=== PATIENT | female | born 1955 | race Caucasian/White ===

== ENCOUNTER → 2016-09-23 | Outpatient (CLI) | payer OTHER ==
[~2016-09-23] MED LIST: LACT1CAP6 PO; LORA-741 PO; OMEP40CA41 PO; SUMA50TA17 PO
--- NOTE | 2016-09-23 15:01 | DIAGNOSTIC IMAGING REPORT ---
LEFT WRIST 4 VIEWS HISTORY: Left WRIST PAIN COMPARISON: None. FINDINGS: There is no fracture or dislocation. Soft tissues are unremarkable. No radiopaque foreign bodies. Bones are slightly osteopenic. IMPRESSION: No fractures. The bones are slightly osteopenic. Electronically signed by: Trevor Block M.D. 09/23/2016 3:00 PM Dictated Date/Time: 09/23/2016 2:59 PM
== END | disposition home or self-care (01) ==
LOC: C.RADPV 14:33
PROVIDERS: ATTEND Family Medicine
DX: M25.532 Pain in left wrist (principal); M85.832 Other specified disorders of bone density and structure, left forearm

== ENCOUNTER → 2016-11-08 | Outpatient (CLI) | payer OTHER ==
--- NOTE | 2016-11-08 15:44 | DIAGNOSTIC IMAGING REPORT ---
RIGHT HAND MIN 3 VIEWS ROUTINE CLINICAL HISTORY: HAND/WRIST/FOREARM PAIN Right pain COMPARISON: None. DISCUSSION: Moderate degenerative change throughout the wrist and hand. No evidence for acute bony pathology. Alignment is anatomic. There is no evidence for fracture or dislocation. There is no evidence for soft tissue swelling. IMPRESSION: No acute process. Moderate degenerative change. The above report was generated using voice recognition software. It may contain grammatical, syntax or spelling errors. Electronically signed by: Guille Alvarez M.D. 11/08/2016 3:43 PM Dictated Date/Time: 11/08/2016 3:42 PM
--- NOTE | 2016-11-08 15:54 | DIAGNOSTIC IMAGING REPORT ---
RIGHT WRIST W/NAVICULAR MIN 3 VIEWS CLINICAL HISTORY: HAND/WRIST/FOREARM PAIN Right pain COMPARISON: None. DISCUSSION: Mild/moderate degenerative change. No well-defined acute bony abnormality. No evidence for fracture or dislocation. There is no evidence for soft tissue swelling. IMPRESSION: Mild degenerative change. No acute bony pathology. The above report was generated using voice recognition software. It may contain grammatical, syntax or spelling errors. Electronically signed by: Guille Alvarez M.D. 11/08/2016 3:53 PM Dictated Date/Time: 11/08/2016 3:52 PM
--- NOTE | 2016-11-08 15:56 | DIAGNOSTIC IMAGING REPORT ---
RIGHT FOREARM 2 VIEWS ROUTINE CLINICAL HISTORY: Right forearm pain following injury. COMPARISON: None FINDINGS: No acute fracture of the right radius or ulna is identified. Alignment of the right wrist and elbow is anatomic. There is no right elbow joint effusion. IMPRESSION: No acute fracture of the right radius or ulna. Electronically signed by: Anton Saha M.D. 11/08/2016 3:54 PM Dictated Date/Time: 11/08/2016 3:53 PM
== END | disposition home or self-care (01) ==
LOC: C.RAD1850 15:19
PROVIDERS: ATTEND Nurse Practitioner Family
DX: M79.641 Pain in right hand (principal); M79.631 Pain in right forearm

== ENCOUNTER → 2016-11-10 | Outpatient (CLI) | payer OTHER ==
--- NOTE | 2016-11-10 13:18 | DIAGNOSTIC IMAGING REPORT ---
RIGHT UPPER EXTREMITY WITHOUT HISTORY: 61 years Female with acute right wrist pain with concern for occult scaphoid fracture. COMPARISON: Right wrist radiographs 11/08/2016 TECHNIQUE: Multiple axial CT images of the right wrist were obtained without IV contrast. Coronal and sagittal reformatted images were obtained from the axial data set and submitted for review. A dose lowering technique was used consistent with the principles of ALARA FINDINGS: Exam is mildly limited secondary to patient motion. The bones are mildly demineralized. No acute fracture or dislocation is identified, specifically the scaphoid appears intact. There is no evidence of avascular necrosis or collapse. Radiocarpal and intercarpal alignment is satisfactory. No scapholunate widening is identified. The distal radius and ulna also appear intact. There is mild radiocarpal joint space narrowing with moderate degenerative changes of the first digit carpometacarpal joint. 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 The imaged flexor and extensor tendons appear to be within normal limits. There is mild subcutaneous edema about the wrist without large collection or foreign body identified. IMPRESSION: 1. No acute fracture or dislocation identified within the right carpus or distal radius, specifically the scaphoid appears intact. No evidence of avascular necrosis. 2. Degenerative changes about the wrist as above including mild radiocarpal and moderate first digit carpometacarpal osteoarthritis. 3. Mild soft tissue swelling about the wrist. The above report was generated using voice recognition software. It may contain grammatical, syntax or spelling errors. Electronically signed by: Michele Bone M.D. 11/10/2016 1:17 PM Dictated Date/Time: 11/10/2016 12:51 PM
== END | disposition home or self-care (01) ==
LOC: C.CTS 12:21
PROVIDERS: ATTEND Nurse Practitioner Family
DX: M25.531 Pain in right wrist (principal)

== ENCOUNTER → 2017-02-07 | Outpatient (CLI) | payer OTHER ==
--- NOTE | 2017-02-09 07:45 | MAMMOGRAPHY REPORT ---
BILATERAL DIGITAL SCREENING MAMMOGRAM TOMOSYNTHESIS WITH CAD: 02/07/2017 CLINICAL HISTORY: Routine screening. Patient has no complaints. TECHNIQUE: Breast tomosynthesis in addition to standard 2D mammography was performed. Current study was also evaluated with a Computer Aided Detection (CAD) system. COMPARISON: Comparison is made to exams dated: 09/28/2011 mammogram, 09/13/2005 mammogram, and 04/11/20 01 mammogram - [facility]. BREAST COMPOSITION: There are scattered areas of fibroglandular density in both breasts. FINDINGS: There are a few benign round and punctate microcalcifications in the breasts. No suspiciou s mass, architectural distortion or cluster of microcalcifications is seen. IMPRESSION: ACR BI-RADS CATEGORY 1: NEGATIVE There is no mammographic evidence of malignancy. A 1 year screening mammogram is recommended. The pa tient will receive written notification of the results. Approximately 10% of breast cancers are not detected with mammography. A negative mammographic report should not delay biopsy if a clinically suggestive mass is present. Prisclila Aly M.D. ay/:02/07/2017 15:31:26 Belt Lacer: Lissa RANDOLPH(Raghu)(Ayo), [facility] letter sent: Normal 1/2 BI-RADS Code: ACR BI-RADS Category 1: Negative
== END | disposition home or self-care (01) ==
LOC: C.MAMM 09:00
PROVIDERS: ATTEND Family Medicine
DX: Z12.31 Encounter for screening mammogram for malignant neoplasm of breast (principal)

== ENCOUNTER → 2017-04-10 | Outpatient (CLI) | payer OTHER ==
[~2017-04-10] MED LIST changes: +ESCI10TA17 PO; -LACT1CAP6 PO; -LORA-741 PO; +OMEP20TA PO; -OMEP40CA41 PO
[2017-04-10 13:13] LABS: BLOOD UREA NITROGEN 13 mg/dl (7-18); BUN/CREATININE RATIO 16.2 (10-20); CARBON DIOXIDE 26 mmol/L (21-32); CHLORIDE 108 mmol/L (98-107); CREATININE 0.79 mg/dl (0.60-1.20); GLUCOSE 98 mg/dl (70-99); POTASSIUM 3.9 mmol/L (3.5-5.1); SODIUM 138 mmol/L (136-145)
[2017-04-10 13:24] LABS: CHOLESTEROL 266 mg/dl (0-200); HDL CHOLESTEROL 44 mg/dl; LDL CHOLESTEROL CALCULATED 194 mg/dl; TRIGLYCERIDES 141 mg/dl (0-150); VERY LOW DENSITY LIPOPROT CALC 28 mg/dl
== END | disposition home or self-care (01) ==
LOC: C.LABPVFM 09:53
PROVIDERS: ATTEND Family Medicine
DX: Z13.1 Encounter for screening for diabetes mellitus (principal); F41.9 Anxiety disorder, unspecified; E78.5 Hyperlipidemia, unspecified

== ENCOUNTER → 2017-04-12 | Day surgery (SDC) | payer OTHER ==
[2017-04-03 10:35] VITALS: Ht 167.6 cm; Wt 78.6 kg
[~2017-04-12] VITALS: Ht 167.6 cm; Wt 78.6 kg
[~2017-04-12] MED LIST changes: +LIDOCAINE HCL 2% 2 ML VIAL (20MG/ML) ONE; +PROPOFOL IV EMULSION 10 MG/ML 20 ML VIAL IV ONE; +SODIUM CHLORIDE 0.9% 500ML 500 ML IV ONE
--- NOTE | 2017-04-12 12:56 | Endo History and Physical ---
History & Physical Date of Service: Apr 12, 2017. Chief Complaint: screening ,history of polyps Referring Physician: Dr. Dozier History of Present Illness 61 yo CF who presents for colonoscopy secondary to history of colon polyps. Past Surgical History Hx Cardiac Surgery: No Hx Internal Defibrillator: No Hx Pacemaker: No Hx Abdominal Surgery: Yes (RT OOPHORECTOMY, DELICIA SUKHWINDER, APPY AND RT OOPHORECTOMY) Hx of Implantable Prosthesis: No Hx Post-Op Nausea and Vomiting: No Hx Cancer Surgery: No Hx Thoracic Surgery: No Hx Orthopedic: Yes (4-5 5-6 ECDF) Hx Urinary Tract Surgery: No Family History IBD Social History Smoking Status: Current Every Day Smoker Hx Substance Use: No Hx Alcohol Use: No Allergies Coded Allergies: Dicyclomine (Verified Allergy, Unknown, irregular heartbeat, 04/03/17) Sulfa Drugs (Verified Allergy, Unknown, GI UPSET, 04/03/17) Aspirin (Verified Adverse Reaction, Mild, GI UPSET, 04/03/17) Clavulanic Acid (Verified Adverse Reaction, Mild, GI UPSET, 04/03/17) Erythromycin (Verified Adverse Reaction, Mild, GI UPSET, 04/03/17) Hydrocodone (Verified Adverse Reaction, Unknown, VOMITING AND "WAS TOTALLY OUT OF IT", 04/03/17) Current Medications Reported Home Medications Medications Dose Route/Sig Max Daily Dose Days Date Category Lexapro (Escitalopram Oxalate) 10 Mg Tab 10 Mg PO QAM 04/03/17 Reported Omeprazole 20 Mg Tab 1 Tab PO BID PRN 04/03/17 Reported Sumatriptan Succinate 50 Mg Tab 50 Mg PO UD 07/31/13 Reported Vital Signs Weight (Kilograms): 78.64 Height (Feet): 5 Height (Inches): 6 Physical Exam General Appearance: WD/WN, no apparent distress Respiratory/Chest: Auscultation: breath sounds normal Cardiovascular: Heart Auscultation: RRR Abdomen: Bowel Sounds: normal Inspection & Palpation: soft, non-distended, no tenderness, guarding & rebound Assessment and Plan Assessment: 61 yo CF who presents for colonoscopy secondary to history of colon polyps. Plan: Proceed with colonoscopy
[2017-04-12 13:00] VITALS: TEMP 37.1
--- NOTE | 2017-04-12 13:34 | Discharge Instructions ---
Endoscopy Patient Instructions Date / Procedure(s) Performed Apr 12, 2017. Colonoscopy Allergy Information Coded Allergies: Dicyclomine (Verified Allergy, Unknown, irregular heartbeat, 04/03/17) Sulfa Drugs (Verified Allergy, Unknown, GI UPSET, 04/03/17) Aspirin (Verified Adverse Reaction, Mild, GI UPSET, 04/03/17) Clavulanic Acid (Verified Adverse Reaction, Mild, GI UPSET, 04/03/17) Erythromycin (Verified Adverse Reaction, Mild, GI UPSET, 04/03/17) Hydrocodone (Verified Adverse Reaction, Unknown, VOMITING AND "WAS TOTALLY OUT OF IT", 04/03/17) Discharge Date / Findings Apr 12, 2017. Colon polyp Internal hemorrhoids Medication Instructions OK to resume all medications today as prescribed Reported Home Medications Medications Dose Route/Sig Max Daily Dose Days Date Category Lexapro (Escitalopram Oxalate) 10 Mg Tab 10 Mg PO QAM 04/03/17 Reported Omeprazole 20 Mg Tab 1 Tab PO BID PRN 04/03/17 Reported Sumatriptan Succinate 50 Mg Tab 50 Mg PO UD 07/31/13 Reported Provider Instructions Activity Restrictions - No exercising or heavy lifting for 24 hours. - Do not drink alcohol the day of the procedure. - Do not drive a car or operate machinery until the day after the procedure. - Do not make any important decisions or sign important papers in 24 hours after the procedure. Following Day: - Return to full activity which may include returning to work/school. Diet Start your diet with liquids and light foods (jello, soup, juice, toast). Then eat your usual diet if not nauseated. Treatment For Common After Affects For mild abdominal pain, bloating, or excessive gas: - Rest - Eat lightly - Lie on right side Follow-Up Information Follow-up with Dr. Dozier as scheduled Anesthesia Information What You Should Know You have had a procedure that required some medicine to reduce anxiety and discomfort. This treatment is called moderate sedation. After receiving the treatment, you may be sleepy, but you will be able to breathe on your own. The effects of the treatment may last for several hours. Follow these instructions along with Activity/Diet recommendations noted above: * Do NOT do anything where dizziness or clumsiness would be dangerous. * Rest quietly at home today, then you can be up and about tomorrow. * Have a responsible person stay with you the rest of today. * You may have had an I.V. today. If so, you may take the dressing off later today. Recommendations Call your doctor if: * Trouble breathing * Continuous vomiting for more than 24 hours * Temperature above 101 degrees * Severe abdominal pain or bloating * Pain not relieved by pain medicine ordered * There is increased drainage or redness from any incision * A large amount of rectal bleeding greater than 2-3 tablespoons. (If you had a polyp/s removed or have hemorrhoids, a small amount of blood - from the rectum is to be expected.) * You have any unanswered questions or concerns. IN THE EVENT OF A SERIOUS EMERGENCY, GO TO THE NEAREST EMERGENCY ROOM Your discharge instructions were prepared by provider Giuseppe Castañeda. Patient Instructions Signature Page Lacie Arita Patient (or Guardian) Signature/Date: I have read and understand the instructions given to me by my caregivers. Caregiver/RN/Doctor Signature/Date: The above-named patient and/or guardian has received patient instructions on this date. + Original Patient Signature Page (only) stays with chart. Please make copy for patient.
--- NOTE | 2017-04-12 13:39 | GI REPORT ---
Procedure Date: 04/12/2017 12:56 PM Procedure: Colonoscopy Indications: High risk colon cancer surveillance: Personal history of colonic polyps Medicines: Monitored Anesthesia Care Complications: No immediate complications. Estimated Blood Loss: Estimated blood loss: none. Procedure: Pre-Anesthesia Assessment: - Prior to the procedure, a History and Physical was performed, and patient medications and allergies were reviewed. The patient's tolerance of previous anesthesia was also reviewed. The risks and benefits of the procedure and the sedation options and risks were discussed with the patient. All questions were answered, and informed consent was obtained. Prior Anticoagulants: The patient has taken no previous anticoagulant or antiplatelet agents. ASA Grade Assessment: II - A patient with mild systemic disease. After reviewing the risks and benefits, the patient was deemed in satisfactory condition to undergo the procedure. After I obtained informed consent, the scope was passed under direct vision. Throughout the procedure, the patient's blood pressure, pulse, and oxygen saturations were monitored continuously. The scope was introduced through the anus and advanced to the terminal ileum. The colonoscopy was performed without difficulty. The patient tolerated the procedure well. The quality of the bowel preparation was good. The terminal ileum, ileocecal valve, appendiceal orifice, and rectum were photographed. Findings: The perianal and digital rectal examinations were normal. A 4 mm polyp was found in the transverse colon. The polyp was sessile. The polyp was removed with a cold snare. Resection and retrieval were complete. Non-bleeding internal hemorrhoids were found during retroflexion. The hemorrhoids were small. Impression: - One 4 mm polyp in the transverse colon, removed with a cold snare. Resected and retrieved. - Non-bleeding internal hemorrhoids. Recommendation: - Resume previous diet. - Continue present medications. - Repeat colonoscopy for surveillance based on pathology results. - Return to primary care physician as previously scheduled. Giuseppe Castañeda DO 04/12/2017 1:38:48 PM This report has been signed electronically. Note Initiated On: 04/12/2017 12:56 PM I attest to the content of the Intraoperative Record and orders documented therein, exceptions below
--- NOTE | 2017-04-12 14:00 | Anesthesiology Progress Note ---
Anesthesia Post Op Note Date & Time Apr 12, 2017 at 14:00 Vital Signs Pain Intensity: 0 Vital Signs Past 12 Hours Date Time Temp Pulse Resp B/P (MAP) Pulse Ox O2 Delivery O2 Flow Rate FiO2 04/12/17 13:51 78 18 112/69 (83) 96 Room Air 04/12/17 13:36 76 18 100/58 (72) 96 Room Air 04/12/17 13:00 37.1 72 20 104/67 (79) 96 Room Air Notes Mental Status: alert / awake / arousable, participated in evaluation Pt Amnestic to Procedure: Yes Nausea / Vomiting: adequately controlled Pain: adequately controlled Airway Patency, RR, SpO2: stable & adequate BP & HR: stable & adequate Hydration State: stable & adequate Anesthetic Complications: no major complications apparent
[2017-04-12 14:06] VITALS: BP 128/92; PULSE 72; O2SAT 98
== END | disposition home or self-care (01) ==
LOC: C.GI 12:30
PROVIDERS: ATTEND Internal Medicine
DX: Z12.11 Encounter for screening for malignant neoplasm of colon (principal); Z86.010 Personal history of colon polyps; D12.3 Benign neoplasm of transverse colon; K64.8 Other hemorrhoids; E78.5 Hyperlipidemia, unspecified; K21.9 Gastro-esophageal reflux disease without esophagitis; F41.9 Anxiety disorder, unspecified; F17.200 Nicotine dependence, unspecified, uncomplicated; Z90.721 Acquired absence of ovaries, unilateral; Z90.710 Acquired absence of both cervix and uterus; Z90.89 Acquired absence of other organs; Z98.1 Arthrodesis status

== ENCOUNTER → 2017-08-03 | Outpatient (CLI) | payer OTHER ==
[~2017-08-03] MED LIST changes: -LIDOCAINE HCL 2% 2 ML VIAL (20MG/ML) ONE; -PROPOFOL IV EMULSION 10 MG/ML 20 ML VIAL IV ONE; -SODIUM CHLORIDE 0.9% 500ML 500 ML IV ONE
== END | disposition home or self-care (01) ==
LOC: C.LABPVFM 13:07
PROVIDERS: ATTEND Nurse Practitioner
DX: J02.9 Acute pharyngitis, unspecified (principal)

== ENCOUNTER → 2017-08-23 | Outpatient (CLI) | payer OTHER ==
--- NOTE | 2017-08-23 13:37 | DIAGNOSTIC IMAGING REPORT ---
L-SPINE MIN 4 VIEWS ROUTINE HISTORY: 61 years-old Female SCIATICA acute right-sided low back pain COMPARISON: Lumbar spine MRI 05/24/2016 TECHNIQUE: 5 views of the lumbar spine FINDINGS: There are 5 nonrib-bearing lumbar type vertebral segments present. Mild levoscoliosis. No spondylolysis or spondylolisthesis. There is no acute fracture or subluxation identified. At least mild multilevel intervertebral disc space narrowing with endplate spurring and facet arthrosis. Probable phlebolith of the left hemipelvis. Mild degenerative changes about the bilateral hips. IMPRESSION: No acute fracture or subluxation. The above report was generated using voice recognition software. It may contain grammatical, syntax or spelling errors. Electronically signed by: Michele Bone M.D. 08/23/2017 1:36 PM Dictated Date/Time: 08/23/2017 1:34 PM
== END | disposition home or self-care (01) ==
LOC: C.RADPV 12:54
PROVIDERS: ATTEND Family Medicine
DX: M54.31 Sciatica, right side (principal)

== ENCOUNTER → 2017-12-06 | Outpatient (CLI) | payer OTHER ==
--- NOTE | 2017-12-06 13:35 | DIAGNOSTIC IMAGING REPORT ---
R FOOT MIN 3 VIEWS ROUTINE CLINICAL HISTORY: 62 years-old Female presenting with Plantar fasciitis, right Achilles tendonitis. TECHNIQUE: Frontal, oblique, and lateral views the right foot were obtained. COMPARISON: None. FINDINGS: Prominent enthesophyte at the origin of the plantar fascia. Small enthesophyte at the insertion of the Achilles tendon. Incidental note made of an os peroneum. No acute fracture or malalignment. No advanced degenerative change. No radiographic soft tissue abnormality. IMPRESSION: 1. No acute osseous injury. 2. Prominent enthesophyte at the origin of the plantar fascia. Correlate clinically for plantar fasciitis. 3. Small enthesophyte at the insertion of the Achilles tendon. Electronically signed by: Jah Vasquez M.D. 12/06/2017 1:34 PM Dictated Date/Time: 12/06/2017 1:33 PM
== END | disposition home or self-care (01) ==
LOC: C.RADPV 13:19
PROVIDERS: ATTEND Family Medicine
DX: M76.60 Achilles tendinitis, unspecified leg (principal); M72.2 Plantar fascial fibromatosis